=== PATIENT | male | born 1980 | race Caucasian/White ===

== ENCOUNTER 2019-06-04 06:03 | Emergency (ER) | payer OTHER, SELFPAY ==
[2019-06-04] MEDS ORDERED: NA CHLORIDE 0.9% 1,000 ML ONE (06:33)
[2019-06-04] MEDS ORDERED: FENTANYL CITR 100 MCG/2 ML ONE (06:33)
--- NOTE | 2019-06-04 07:06 | EDPHYS ---
Physician Documentation [facility] Name: Geo Santos Age: 38 yrs Sex: Male : 1980 Arrival Date: 06/04/2019 Time: 06:05 Bed 5 Private MD: ED Physician Dariel Flanagan HPI: 06/03 06:09 This 38 yrs old Male presents to ER via Unassigned with complaints of cp Dislocated Shoulder. 06:09 The patient or guardian complains of decreased range of motion, deformity. right cp shoulder. Context: resulted from working out, The patient experiences decreased range of motion, when attempts to raise arm. Onset: The symptoms/episode began/occurred just prior to arrival. 06:09 Associated signs and symptoms: Pertinent negatives: chest pain, neck pain, Numbness in cp right arm shortness of breath, Weakness in right arm. Historical: - Allergies: 06:11 No Known Allergies; ea - Home Meds: 06:11 None [Active]; ea - PMHx: 06:11 None; ea - PSHx: 06:11 None; ea - Immunization history:: Adult Immunizations up to date. - Social history:: Smoking status: Patient denies any tobacco usage or history of. ROS: 06:10 Eyes: Negative for injury, pain, redness, and discharge. cp 06:10 Constitutional: Negative for body aches, chills, poor PO intake. 06:10 Neck: Negative for pain with movement, pain at rest, stiffness. 06:10 Cardiovascular: Negative for chest pain, palpitations. 06:10 Respiratory: Negative for shortness of breath, wheezing. 06:10 MS/extremity: Positive for decreased range of motion, pain, tenderness, of the right shoulder, Negative for paresthesias. 06:10 Neuro: Negative for altered mental status, headache, weakness. 06:10 All other systems are negative. Exam: 06:49 Constitutional: This is a well developed, well nourished patient who is awake, alert, ramez and in no acute distress. Head/Face: Normocephalic, atraumatic. Eyes: Pupils equal round and reactive to light, extra-ocular motions intact. Lids and lashes normal. Conjunctiva and sclera are non-icteric and not injected. Cornea within normal limits. Periorbital areas with no swelling, redness, or edema. ENT: Nares patent. No nasal discharge, no septal abnormalities noted. Tympanic membranes are normal and external auditory canals are clear. Oropharynx with no redness, swelling, or masses, exudates, or evidence of obstruction, uvula midline. Mucous membranes moist. Neck: Trachea midline, no thyromegaly or masses palpated, and no cervical lymphadenopathy. Supple, full range of motion without nuchal rigidity, or vertebral point tenderness. No Meningismus. Chest/axilla: Normal chest wall appearance and motion. Nontender with no deformity. No lesions are appreciated. Cardiovascular: Regular rate and rhythm with a normal S1 and S2. No gallops, murmurs, or rubs. Normal PMI, no JVD. No pulse deficits. Respiratory: Lungs have equal breath sounds bilaterally, clear to auscultation and percussion. No rales, rhonchi or wheezes noted. No increased work of breathing, no retractions or nasal flaring. Abdomen/GI: Soft, non-tender, with normal bowel sounds. No distension or tympany. No guarding or rebound. No evidence of tenderness throughout. Back: No spinal tenderness. No costovertebral tenderness. Full range of motion. Male : Normal genitalia with no discharge or lesions. Skin: Warm, dry with normal turgor. Normal color with no rashes, no lesions, and no evidence of cellulitis. Neuro: Awake and alert, GCS 15, oriented to person, place, time, and situation. Cranial nerves II-XII grossly intact. Motor strength 5/5 in all extremities. Sensory grossly intact. Cerebellar exam normal. Normal gait. Psych: Awake, alert, with orientation to person, place and time. Behavior, mood, and affect are within normal limits. 06:49 Musculoskeletal/extremity: ROM: limited active range of motion due to pain, in the anterior aspect of right shoulder and posterior aspect of right shoulder, limited passive range of motion due to pain, Circulation is intact in all extremities. the anterior aspect of right shoulder and posterior aspect of right shoulder Compartment Syndrome exam of affected extremity: is normal. Joints: the right shoulder displays painful range of motion, swelling, tenderness, DVT Exam: no swelling, negative Homans' sign noted on exam, no appreciated bluish discoloration, no erythema, no increased warmth, pain, tenderness. Vital Signs: 06:09 BP 128 / 80; Pulse 67; Resp 16; Temp 98; Pulse Ox 99% ; Weight 79.38 kg; Height 6 ft. 1 ea in. (185.42 cm); 07:14 BP 120 / 80; Pulse 62; Resp 17; Pulse Ox 98% on R/A; tw2 06:09 Body Mass Index 23.09 (79.38 kg, 185.42 cm) ea Procedures: 06:49 Reduction: of the right shoulder, using traction, Immobilized with sling, Patient ramez tolerated well. Post reduction film - reveals normal alignment. MDM: 06:08 Patient medically screened. 06:19 ED course: no prescriptions found for narcotics on [place] prescription monitoring cp website. 06:54 Data reviewed: vital signs, nurses notes, radiologic studies. [facility] 06/03 06:09 Order name: XRAY Shoulder RIGHT 2 view 06/03 06:44 Order name: XRAY Shoulder RIGHT 2 view 06/03 06:19 Order name: IV; Complete Time: 06:26 06/03 06:53 Order name: Ice pack; Complete Time: 07:05 [facility] Administered Medications: Discontinued: NS 0.9% 1000 ml IV at 1 bolus Per protocol; 1000 mL bolus 06:34 Drug: fentaNYL (PF) 25 mcg {Note: FLACC 0.} Route: IVP; Site: left antecubital; ea 07:22 Follow up: Response: No adverse reaction; Pain is decreased; RASS: Alert and Calm (0) tw2 06:35 Drug: NS 0.9% 1000 ml Route: IV; Rate: 1 bolus; Site: left antecubital; ea 07:22 Follow up: IV Status: Order to discontinue infusion; IV Intake: 200ml ; pt requested tw2 discontinued Disposition: 06:54 Co-signature as Attending Physician, Dariel Flanagan MD I agree with the assessment and [facility] plan of care. Disposition: 06/04/19 07:05 Discharged to Home. Impression: Other dislocation of right shoulder joint. - Condition is Stable. - Discharge Instructions: Shoulder Dislocation. - Medication Reconciliation Form, Thank You Letter, Antibiotic Education, Prescription Opioid Use, Work release form form. - Follow up: Rafael Castro MD; When: 1 - 2 days; Reason: Recheck today's complaints. - Problem is new. - Symptoms have improved. Signatures: Dispatcher [employer] EDDariel Ribeiro MD MD cha Page, Corey, PA PA cp Bailee Aragon, RN RN tw2 Kiara Byrd RN RN ea Corrections: (The following items were deleted from the chart) 07:25 07:05 06/04/2019 07:05 Discharged to Home. Impression: Other dislocation of right tw2 shoulder joint. Condition is Stable. Forms are Work release form, Medication Reconciliation Form, Thank You Letter, Antibiotic Education, Prescription Opioid Use. Follow up: Rafael Castro; When: 1 - 2 days; Reason: Recheck today's complaints. Problem is new. Symptoms have improved. cp
--- NOTE | 2019-06-04 07:06 | ER ---
Nurse's Notes [facility] Name: Geo Santos Age: 38 yrs Sex: Male : 1980 Arrival Date: 06/04/2019 Time: 06:05 Bed 5 Private MD: Diagnosis: Other dislocation of right shoulder joint Presentation: 06/03 06:09 Chief complaint: Patient states: Pt reports he was warming up for a workout and ea reported his right shoulder slipped out of place, reports it has occurred 5 times before. Coronavirus screen: The patient has NOT traveled to a country currently being monitored by the [facility] within the last 14 days. Ebola Screen: No symptoms or risks identified at this time. Initial Sepsis Screen: Does the patient meet any 2 criteria? No. Patient's initial sepsis screen is negative. Does the patient have a suspected source of infection? No. Patient's initial sepsis screen is negative. Risk Assessment: Do you want to hurt yourself or someone else? Patient reports no desire to harm self or others. 06:09 Method Of Arrival: Ambulatory ea 06:09 Acuity: MELQUIADES 3 ea Triage Assessment: 06:12 General: Appears uncomfortable, Behavior is appropriate for age. Pain: Complains of ea pain in right shoulder. Historical: - Allergies: 06:11 No Known Allergies; ea - Home Meds: 06:11 None [Active]; ea - PMHx: 06:11 None; ea - PSHx: 06:11 None; ea - Immunization history:: Adult Immunizations up to date. - Social history:: Smoking status: Patient denies any tobacco usage or history of. Screenin:11 Abuse screen: Denies threats or abuse. Nutritional screening: No deficits noted. ea Tuberculosis screening: No symptoms or risk factors identified. Fall Risk None identified. Assessment: 06:12 General: Appears uncomfortable, Behavior is appropriate for age. Pain: Complains of ea pain in right shoulder. Neuro: Level of Consciousness is awake, alert, obeys commands, Oriented to person, place, time. Respiratory: Airway is patent Respiratory effort is even, unlabored, Respiratory pattern is regular, symmetrical. Derm: Skin is pink, warm \T\ dry. 07:24 Reassessment: Patient appears in no apparent distress at this time. Patient and/or tw2 family updated on plan of care and expected duration. Pain level reassessed. Patient is alert, oriented x 3, equal unlabored respirations, skin warm/dry/pink. Patient states feeling better. Vital Signs: 06:09 BP 128 / 80; Pulse 67; Resp 16; Temp 98; Pulse Ox 99% ; Weight 79.38 kg; Height 6 ft. 1 ea in. (185.42 cm); 07:14 BP 120 / 80; Pulse 62; Resp 17; Pulse Ox 98% on R/A; tw2 06:09 Body Mass Index 23.09 (79.38 kg, 185.42 cm) ea ED Course: 06:05 Patient arrived in ED. cl3 06:06 Dariel Anguiano PA is PHCP. cp 06:06 Dariel Flanagan MD is Attending Physician. cp 06:11 Triage completed. ea 06:11 Arm band placed on right wrist. Patient placed in an exam room, on a stretcher, on ea pulse oximetry. 06:12 Patient has correct armband on for positive identification. Placed in gown. Bed in low ea position. 06:26 Inserted saline lock: 20 gauge in right antecubital area, using aseptic technique. ea 06:45 XRAY Shoulder RIGHT 2 view In Process Unspecified. EDMS 06:47 Assist provider with reduction of right shoulder using manipulation, Set up for ea procedure. Performed by Dariel REYES Immobilized with sling, Patient tolerated well. 07:01 XRAY Shoulder RIGHT 2 view In Process Unspecified. EDMS 07:04 Rafael Castro MD is Referral Physician. cp 07:05 Sameer Marquis, RN is Primary Nurse. em 07:24 IV discontinued, intact, bleeding controlled, No redness/swelling at site. Pressure tw2 dressing applied. Administered Medications: Discontinued: NS 0.9% 1000 ml IV at 1 bolus Per protocol; 1000 mL bolus 06:34 Drug: fentaNYL (PF) 25 mcg {Note: FLACC 0.} Route: IVP; Site: left antecubital; ea 07:22 Follow up: Response: No adverse reaction; Pain is decreased; RASS: Alert and Calm (0) tw2 06:35 Drug: NS 0.9% 1000 ml Route: IV; Rate: 1 bolus; Site: left antecubital; ea 07:22 Follow up: IV Status: Order to discontinue infusion; IV Intake: 200ml ; pt requested tw2 discontinued Intake: 07:22 IV: 200ml; Total: 200ml. tw2 Outcome: 07:05 Discharge ordered by . cp 07:23 Discharged to home ambulatory, with friend. tw2 07:23 Condition: stable 07:23 Discharge instructions given to patient, friend, Instructed on discharge instructions, follow up and referral plans. Demonstrated understanding of instructions, follow-up care. 07:25 Patient left the ED. tw2 Signatures: Dispatcher [employer] Sameer Iglesias RN RN Dariel Álvarez, AMY PA Bailee Gardiner RN RN tw2 Kiara Byrd RN RN Curtis Muñoz cl3
[2019-06-04 07:32] VITALS: TEMP 98
[2019-06-04 07:34] VITALS: BP 120/80; O2SAT 98
--- NOTE | 2019-06-04 08:35 | RAD REPORT ---
EXAM DESCRIPTION: RAD - Shoulder Right 2 View - 06/04/2019 6:45 am CLINICAL HISTORY: Deformity;Pain COMPARISON: No comparisons FINDINGS: Subcoracoid dislocation of the humeral head is present. No acute fractures seen.
--- NOTE | 2019-06-04 08:36 | RAD REPORT ---
EXAM DESCRIPTION: RAD - Shoulder Right 2 View - 06/04/2019 7:01 am CLINICAL HISTORY: post reduction Pain and swelling COMPARISON: Shoulder Right 2 View dated 06/04/2019 FINDINGS: Previously noted subcoracoid dislocation of the humeral head has been reduced. No acute fr acture identified. [place] deformity seen.
== END 2019-06-04 07:25 | disposition home or self-care (01) ==
LOC: ER 06:03
PROC: 0RSJXZZ Reposition Right Shoulder Joint, External Approach (ICD-10-PCS; principal; 2019-06-04)
DX: S43.084A Other dislocation of right shoulder joint, initial encounter (principal); X58.XXXA Exposure to other specified factors, initial encounter; Y93.89 Activity, other specified; Y92.9 Unspecified place or not applicable
CPT/HCPCS: 96361; 96374; 99284; J3010; J7030